=== PATIENT | female | born 1995 | race Caucasian/White ===

== ENCOUNTER 2017-10-29 14:04 | Emergency (ER) | payer OTHER ==
[~2017-10-29] VITALS: Ht 160 cm; Wt 49.9 kg
[2017-10-29 14:21] VITALS: Ht 160 cm; Wt 49.9 kg
[2017-10-29 15:08] VITALS: BP 100/69
== END 2017-10-29 15:09 | disposition home or self-care (01) ==
LOC: ED 14:04
DX: S61.011A Laceration without foreign body of right thumb without damage to nail, initial encounter (principal); X58.XXXA Exposure to other specified factors, initial encounter; Y93.89 Activity, other specified; Y92.89 Other specified places as the place of occurrence of the external cause; Y99.8 Other external cause status
CPT/HCPCS: J2001